=== PATIENT | male | born 1950 | race Caucasian/White ===

== ENCOUNTER 2024-03-07 06:46 | Outpatient (RCR) | payer MEDICARE, OTHER, SELFPAY | END 2024-03-07 23:59 | disposition home or self-care (01) | LOC: RPT 06:46 | PROVIDERS: ATTENDING PHYSICIAN Family Medicine | DX: M54.42 Lumbago with sciatica, left side (principal); Z73.6 Limitation of activities due to disability | CPT/HCPCS: 97110; 97140; 97162 ==

== ENCOUNTER 2024-04-05 09:47 | Outpatient (RCR) | payer MEDICARE, OTHER, SELFPAY | END 2024-04-05 23:59 | disposition home or self-care (01) | LOC: RPT 09:47 | PROVIDERS: ATTENDING PHYSICIAN Family Medicine | DX: M54.42 Lumbago with sciatica, left side (principal); Z73.6 Limitation of activities due to disability; M79.605 Pain in left leg; R26.89 Other abnormalities of gait and mobility | CPT/HCPCS: 97110; 97140 ==

== ENCOUNTER → 2024-04-09 07:47 | Outpatient (REF) | payer MEDICARE, OTHER, SELFPAY | LOC: RAD 07:47 | PROVIDERS: ATTENDING PHYSICIAN Family Medicine | DX: Z13.6 Encounter for screening for cardiovascular disorders (principal); Z87.891 Personal history of nicotine dependence | CPT/HCPCS: 76770 ==

== ENCOUNTER 2024-04-27 09:52 | Outpatient (RCR) | payer MEDICARE, OTHER, SELFPAY | END 2024-04-28 13:49 | disposition home or self-care (01) | LOC: RPT 09:52 | PROVIDERS: ATTENDING PHYSICIAN Family Medicine | DX: M54.42 Lumbago with sciatica, left side (principal); Z73.6 Limitation of activities due to disability; M79.605 Pain in left leg; R26.89 Other abnormalities of gait and mobility; R29.898 Other symptoms and signs involving the musculoskeletal system | CPT/HCPCS: 97110 ==

== ENCOUNTER → 2024-10-28 15:08 | Outpatient (REF) | payer MEDICARE, OTHER, SELFPAY | LOC: HWRAD 15:08 | PROVIDERS: ATTENDING PHYSICIAN Family Medicine | DX: M25.552 Pain in left hip (principal) | CPT/HCPCS: 73502 ==

== ENCOUNTER 2024-11-16 06:17 | Day surgery (SDC) | payer MEDICARE, OTHER, SELFPAY ==
[2024-11-16 07:51] LABS: Glucose - Point of Care 95 mg/dl (70-99)
== END 2024-11-16 10:03 | disposition home or self-care (01) ==
LOC: GI 06:17
PROVIDERS: ATTENDING PHYSICIAN Specialist
DX: Z12.11 Encounter for screening for malignant neoplasm of colon (principal); D12.3 Benign neoplasm of transverse colon; K63.5 Polyp of colon; K57.30 Diverticulosis of large intestine without perforation or abscess without bleeding; K64.4 Residual hemorrhoidal skin tags; K22.70 Barrett's esophagus without dysplasia; K31.7 Polyp of stomach and duodenum; Z86.0101 Personal history of adenomatous and serrated colon polyps; Z79.01 Long term (current) use of anticoagulants
CPT/HCPCS: 45385; 45380; 43239; 82962; 88305; 88342

== ENCOUNTER 2024-12-08 14:13 | Outpatient (RCR) | payer MEDICARE, OTHER, SELFPAY | END 2024-12-08 23:59 | disposition home or self-care (01) | LOC: RPT 14:13 | PROVIDERS: ATTENDING PHYSICIAN Physician Assistant Surgical; FAMILY PHYSICIAN Family Medicine | DX: M70.62 Trochanteric bursitis, left hip (principal); M54.50 Low back pain, unspecified; Z73.6 Limitation of activities due to disability | CPT/HCPCS: 97110; 97112; 97162 ==

== ENCOUNTER 2025-01-02 08:51 | Outpatient (RCR) | payer MEDICARE, OTHER, SELFPAY | END 2025-01-02 23:59 | disposition home or self-care (01) | LOC: RPT 08:51 | PROVIDERS: ATTENDING PHYSICIAN Physician Assistant Surgical; FAMILY PHYSICIAN Family Medicine | DX: M70.62 Trochanteric bursitis, left hip (principal); M54.50 Low back pain, unspecified; Z73.6 Limitation of activities due to disability | CPT/HCPCS: 97110; 97112 ==

== ENCOUNTER 2025-01-16 08:55 | Outpatient (RCR) | payer MEDICARE, OTHER, SELFPAY | END 2025-01-17 09:37 | disposition home or self-care (01) | LOC: RPT 08:55 | PROVIDERS: ATTENDING PHYSICIAN Physician Assistant Surgical; FAMILY PHYSICIAN Family Medicine | DX: M70.62 Trochanteric bursitis, left hip (principal); M54.50 Low back pain, unspecified; Z73.6 Limitation of activities due to disability | CPT/HCPCS: 97110; 97112 ==